=== PATIENT | male | born 1955 | race Caucasian/White ===

== ENCOUNTER 2024-11-21 12:35 | Inpatient (IN) | payer MEDICARE, OTHER ==
[~2024-11-21] VITALS: Ht 175.3 cm; Wt 88.0 kg
[2024-11-21] VITALS (9 sets, daily range): BP systolic 107–134; BP diastolic 55–93; TEMP 97.5; O2SAT 98–100
[2024-11-21] MEDS: VANCOMYCIN 1 GM in IV D5W 250 ML IV ONE (13:00)
[2024-11-21 13:14] LABS: BASOPHILS % (AUTO) 0.1 % (0.0-2.0); EOSINOPHILS # (AUTO) 0.2 K/uL (0.0-0.7); EOSINOPHILS % (AUTO) 1.2 % (0.0-6.0); HEMATOCRIT 29 % (39-51); HEMOGLOBIN 9.7 g/dL (13.5-17.5); LYMPHOCYTES # (AUTO) 0.3 K/uL (0.8-4.8); LYMPHOCYTES % (AUTO) 1.6 % (20.0-44.0); MEAN CORPUSCULAR HEMOGLOBIN 30 PG (26.0-33.0); MEAN CORPUSCULAR HGB CONC 34 g/dl (31.0-36.0); MEAN CORPUSCULAR VOLUME 90 fL (80-96); MONOCYTES # (AUTO) 0.2 K/uL (0.1-1.30); MONOCYTES % (AUTO) 1.4 % (2.0-12.0); NEUTROPHILS # (AUTO) 15.6 K/uL (1.8-8.9); NEUTROPHILS % (AUTO) 95.7 % (43.0-81.0); PLATELET COUNT (AUTO) 113 K/uL (150-450); RED BLOOD CELL COUNT(AUTO) 3.18 MIL/uL (4.5-6.0); RED CELL DISTRIBUTION WIDTH 15.9 % (11.5-15.0); WHITE BLOOD COUNT (AUTO) 16.3 K/uL (4.3-11.0)
[2024-11-21] MEDS ORDERED: MAGN400O6 PO (13:26)
[2024-11-21] MEDS ORDERED: ASCO-352 PO (13:26)
[2024-11-21] MEDS ORDERED: ASPI-1420 PO (13:26)
[2024-11-21] MEDS ORDERED: DOCU100T2 PO (13:26)
[2024-11-21] MEDS ORDERED: NICO2GUM38 PO (13:26)
[2024-11-21] MEDS ORDERED: ATOR40TA PO (13:26)
[2024-11-21] MEDS ORDERED: DICL100G34 TP (13:26)
[2024-11-21] MEDS ORDERED: ACET-2030 PO (13:26)
[2024-11-21] MEDS ORDERED: CHOL200026 PO (13:26)
[2024-11-21] MEDS ORDERED: AMIN887L7 PO (13:26)
[2024-11-21] MEDS ORDERED: BISA10SU11 RC (13:26)
[2024-11-21] MEDS ORDERED: LISI20TA30 PO (13:26)
[2024-11-21] MEDS ORDERED: MULT-225 PO (13:26)
[2024-11-21] MEDS ORDERED: GABA300C PO (13:26)
[2024-11-21 13:27] LABS: ALANINE AMINOTRANSFERASE 68 U/L (12-78); ALKALINE PHOSPHATASE 362 U/L (46-116); ASPARTATE AMINOTRANSFERASE 108 U/L (15-37); BILIRUBIN,DIRECT 1.6 mg/dL (0.0-0.2); BILIRUBIN,TOTAL 1.7 mg/dL (0.2-1.0); CALCIUM, SERUM 7.7 mg/dL (8.5-10.1); CARBON DIOXIDE 22 mmol/L (21-32); CHLORIDE 98 mmol/L (98-107); CREATININE 4.1 mg/dL (0.6-1.3); GLUCOSE 108 mg/dL (74-106); POTASSIUM 4.4 mmol/L (3.5-5.1); SODIUM SERUM 133 mmol/L (136-145); TOTAL PROTEIN, SERUM 6.6 g/dL (6.4-8.2)
[2024-11-21] MEDS: CEFEPIME 1 GM in IV D5W 50 ML IV ONE (13:27)
[2024-11-21] MEDS: IV NS 0.9% 1,000 ML BAG IV ONE ×2 (13:27→14:11)
[2024-11-21 13:29] LABS: INR 1.19 (0.91-1.10); PARTIAL THROMBOPLASTIN TIME 33.6 SEC (24.3-34.3); PROTHROMBIN TIME 12.5 SECS (9.2-11.1)
[2024-11-21 13:29] LABS: APPEARANCE,URINE CLEAR (CLEAR); BILIRUBIN,URINE NEGATIVE (NEGATIVE); BLOOD, URINE NEGATIVE Ery/uL (NEGATIVE); COLOR,URINE DARK YELLOW (YELLOW); KETONES,URINE NEGATIVE (NEGATIVE); LEUKOCYTE ESTERASE ,URINE NEGATIVE (NEGATIVE); NITRITE, URINE NEGATIVE (NEGATIVE); PH,URINE 5.5 (5.0-8.0); PROTEIN,URINE 2+ mg/dl (NEGATIVE); UGLUCOSE NEGATIVE (NEGATIVE); UROBILINOGEN,URINE 0.2 EU/dL (0.2)
[2024-11-21 13:34] LABS: ALBUMIN 1.3 g/dL (3.4-5.0); UREA NITROGEN, BLOOD 86 mg/dL (7-18)
[2024-11-21 13:35] LABS: LACTIC ACID 3.2 mmol/L (0.4-2.0)
[2024-11-21 13:41] LABS: ADD URINE CULTURE YES; BACTERIA,URINE Moderate /HPF (None Seen); MUCUS,URINE Few /LPF (None Seen); RBC,URINE 0-2 /HPF (0-2); SQUAMOUS EPITHELIAL CELL,UR 0-2 /HPF (None Seen); WBC,URINE 0-2 /HPF (0-3)
[2024-11-21] MEDS: NOREPINEPHRINE 8 MG in IV D5W 242 ML IV PRN ×2 (14:30→20:51)
[2024-11-21] MEDS ORDERED: NOREPINEPHRINE 8MG/250ML RTU 250 ML IV ONE ×2 (14:32→20:01)
[2024-11-21] MEDS ORDERED: ONDANSETRON HCL/PF 4 MG/2 ML VIAL IVP PRN (15:30)
[2024-11-21 15:43] LABS: ABG BASE EXCESS -8.4 mmol/L (-2.0-3.0); ABG OXYGEN SATURATION 85.2 % (94.0-98.0); ABG PCO2 26.1 mmHg (35.0-48.0); ABG PH 7.385 (7.350-7.450); ABG PO2 56.1 mmHg (83.0-108.0); ABG TOTAL HEMOGLOBIN 10.6 G/dL (13.5-17.5); COHb 0.2 % (0.5-1.5); MetHb 0.2 % (0.0-1.5); O2Hb 84.9 % (94.0-97.0); SITE, ABG RIGHT RADIAL
[2024-11-21] MEDS: VANCOMYCIN 500 MG in IV D5W 100ml IV ONE (19:30)
[2024-11-21] MEDS: Sodium Bicarbonate 100 MEQ in IV D5/0.45 NACL 1,000 ML IV SCH (20:46)
[2024-11-22] VITALS (97 sets, daily range): BP systolic 74–151; BP diastolic 50–92; TEMP 97.6–99; O2SAT 94–100
[2024-11-22] MEDS: IV NS 0.9% 250 ML IV PRN (00:32)
[2024-11-22] MEDS: CEFEPIME 1 GM in IV D5W 50 ML IV SCH (00:33)
[2024-11-22 05:00] LABS: BASOPHILS % (AUTO) 0.1 % (0.0-2.0); EOSINOPHILS # (AUTO) 0.4 K/uL (0.0-0.7); EOSINOPHILS % (AUTO) 1.7 % (0.0-6.0); HEMATOCRIT 28 % (39-51); HEMOGLOBIN 9.8 g/dL (13.5-17.5); LYMPHOCYTES # (AUTO) 0.3 K/uL (0.8-4.8); LYMPHOCYTES % (AUTO) 1.2 % (20.0-44.0); MEAN CORPUSCULAR HEMOGLOBIN 32 PG (26.0-33.0); MEAN CORPUSCULAR HGB CONC 35 g/dl (31.0-36.0); MEAN CORPUSCULAR VOLUME 91 fL (80-96); MONOCYTES # (AUTO) 0.6 K/uL (0.1-1.30); MONOCYTES % (AUTO) 2.8 % (2.0-12.0); NEUTROPHILS # (AUTO) 19.8 K/uL (1.8-8.9); NEUTROPHILS % (AUTO) 94.2 % (43.0-81.0); PLATELET COUNT (AUTO) 113 K/uL (150-450); RED BLOOD CELL COUNT(AUTO) 3.11 MIL/uL (4.5-6.0); RED CELL DISTRIBUTION WIDTH 15.9 % (11.5-15.0)
[2024-11-22 05:09] LABS: CALCIUM, SERUM 6.9 mg/dL (8.5-10.1); CREATININE 3.8 mg/dL (0.6-1.3); MAGNESIUM 2.5 mg/dL (1.8-2.4); PHOSPHORUS 6.4 mg/dL (2.5-4.9); POTASSIUM 4.6 mmol/L (3.5-5.1)
[2024-11-22 05:44] LABS: PLATELET ESTIMATE DECREASED
[2024-11-22 09:47] LABS: BILIRUBIN,DIRECT 1.4 mg/dL (0.0-0.2); BILIRUBIN,TOTAL 1.6 mg/dL (0.2-1.0); TOTAL PROTEIN, SERUM 6.3 g/dL (6.4-8.2)
[2024-11-22] MEDS: MULTIVIT W/MINERALS 1 TAB TABLET PO SCH (09:47)
[2024-11-22] MEDS: ASPIRIN EC 81 MG TABLET.DR PO SCH (09:47)
[2024-11-22] MEDS: CHOLECALCIFEROL 1,000 UNIT TABLET (VIT D3) PO SCH (09:47)
[2024-11-22] MEDS: ASCORBIC ACID 500 MG TABLET PO SCH (09:47)
[2024-11-22] MEDS: DOCUSATE SODIUM 100 MG CAPSULE PO SCH (09:48)
[2024-11-22] MEDS: GABAPENTIN 300 MG CAPSULE PO SCH (10:11)
[2024-11-22 10:12] LABS: ALBUMIN 1.1 g/dL (3.4-5.0)
[2024-11-22] MEDS: DICLOFENAC TOPICAL 100 GM TUBE TP SCH (10:40)
[2024-11-22] MEDS: ATORVASTATIN 40 MG TABLET PO SCH (21:17)
[2024-11-22] MEDS: MUPIROCIN OINT 2% 22 GM TUBE NS SCH (21:30)
[2024-11-23] VITALS (96 sets, daily range): BP systolic 73–143; BP diastolic 43–93; TEMP 97.5–98.7; O2SAT 92–100
[2024-11-23 05:38] LABS: ALANINE AMINOTRANSFERASE 65 U/L (12-78); ALKALINE PHOSPHATASE 401 U/L (46-116); ASPARTATE AMINOTRANSFERASE 99 U/L (15-37); BILIRUBIN,DIRECT 1.2 mg/dL (0.0-0.2); BILIRUBIN,TOTAL 1.5 mg/dL (0.2-1.0); CALCIUM, SERUM 7.2 mg/dL (8.5-10.1); CARBON DIOXIDE 25 mmol/L (21-32); CHLORIDE 103 mmol/L (98-107); CREATININE 3.4 mg/dL (0.6-1.3); GLUCOSE 151 mg/dL (74-106); MAGNESIUM 2.5 mg/dL (1.8-2.4); PHOSPHORUS 5.7 mg/dL (2.5-4.9); POTASSIUM 4.3 mmol/L (3.5-5.1); SODIUM SERUM 137 mmol/L (136-145); TOTAL PROTEIN, SERUM 6.3 g/dL (6.4-8.2)
[2024-11-23 05:43] LABS: CREATINE KINASE, TOTAL 165 U/L (39-308)
[2024-11-23 05:50] LABS: ALBUMIN 0.9 g/dL (3.4-5.0); UREA NITROGEN, BLOOD 89 mg/dL (7-18)
[2024-11-23 06:16] LABS: BASOPHILS % (AUTO) 0.1 % (0.0-2.0); EOSINOPHILS % (AUTO) 0.2 % (0.0-6.0); HEMATOCRIT 29 % (39-51); HEMOGLOBIN 9.6 g/dL (13.5-17.5); LYMPHOCYTES # (AUTO) 0.8 K/uL (0.8-4.8); LYMPHOCYTES % (AUTO) 4.4 % (20.0-44.0); MEAN CORPUSCULAR HEMOGLOBIN 31 PG (26.0-33.0); MEAN CORPUSCULAR HGB CONC 33 g/dl (31.0-36.0); MEAN CORPUSCULAR VOLUME 92 fL (80-96); MONOCYTES # (AUTO) 0.7 K/uL (0.1-1.30); MONOCYTES % (AUTO) 3.8 % (2.0-12.0); NEUTROPHILS # (AUTO) 16.2 K/uL (1.8-8.9); NEUTROPHILS % (AUTO) 91.5 % (43.0-81.0); PLATELET COUNT (AUTO) 115 K/uL (150-450); RED BLOOD CELL COUNT(AUTO) 3.16 MIL/uL (4.5-6.0); RED CELL DISTRIBUTION WIDTH 15.8 % (11.5-15.0); WHITE BLOOD COUNT (AUTO) 17.8 K/uL (4.3-11.0)
[2024-11-23] MEDS: PROSOURCE / PROSTAT (PYXIS) 30 ML UDC PO SCH (08:29)
[2024-11-23] MEDS: VANCOMYCIN 1 GM in IV D5W 250ml IV SCH (20:43)
[2024-11-24] VITALS (93 sets, daily range): BP systolic 60–146; BP diastolic 46–111; TEMP 97.3–97.8; O2SAT 94–98
[2024-11-24 04:44] LABS: EOSINOPHILS % (AUTO) 0.1 % (0.0-6.0); HEMATOCRIT 27 % (39-51); HEMOGLOBIN 9.2 g/dL (13.5-17.5); LYMPHOCYTES # (AUTO) 0.9 K/uL (0.8-4.8); LYMPHOCYTES % (AUTO) 5.6 % (20.0-44.0); MEAN CORPUSCULAR HEMOGLOBIN 30 PG (26.0-33.0); MEAN CORPUSCULAR HGB CONC 34 g/dl (31.0-36.0); MEAN CORPUSCULAR VOLUME 89 fL (80-96); MONOCYTES # (AUTO) 0.6 K/uL (0.1-1.30); MONOCYTES % (AUTO) 4.1 % (2.0-12.0); NEUTROPHILS # (AUTO) 13.7 K/uL (1.8-8.9); NEUTROPHILS % (AUTO) 90.2 % (43.0-81.0); PLATELET COUNT (AUTO) 82 K/uL (150-450); RED BLOOD CELL COUNT(AUTO) 3.05 MIL/uL (4.5-6.0); RED CELL DISTRIBUTION WIDTH 15.8 % (11.5-15.0); WHITE BLOOD COUNT (AUTO) 15.2 K/uL (4.3-11.0)
[2024-11-24 04:52] LABS: CALCIUM, SERUM 7.2 mg/dL (8.5-10.1); CREATININE 3.8 mg/dL (0.6-1.3); MAGNESIUM 2.3 mg/dL (1.8-2.4); PHOSPHORUS 5.3 mg/dL (2.5-4.9); POTASSIUM 4.1 mmol/L (3.5-5.1)
[2024-11-24 05:36] LABS: BAND % (MANUAL) 2 % (0.0-5.0); BASOPHILS % (MANUAL) 0 % (0.0-2.0); EOSINOPHILS % (MANUAL) 0 % (0-4); LYMPHOCYTES % (MANUAL) 6 % (16-48); MONOCYTES % (MANUAL) 5 % (0-11.0); NEUTROPHILS % (MANUAL) 87 (42-76); PLATELET ESTIMATE DECREASED
[2024-11-24] MEDS: ALBUMIN 25% 25 GM in PREMIX 1 EA IV SCH (08:25)
[2024-11-24] MEDS: ACETAMINOPHEN 325 MG TABLET PO PRN (18:21)
[2024-11-25] VITALS (55 sets, daily range): BP systolic 80–193; BP diastolic 59–145; TEMP 97–98; O2SAT 92–100
[2024-11-25 04:41] LABS: BASOPHILS % (AUTO) 0.2 % (0.0-2.0); EOSINOPHILS % (AUTO) 0.3 % (0.0-6.0); HEMATOCRIT 22 % (39-51); HEMOGLOBIN 7.5 g/dL (13.5-17.5); LYMPHOCYTES # (AUTO) 0.8 K/uL (0.8-4.8); LYMPHOCYTES % (AUTO) 6.8 % (20.0-44.0); MEAN CORPUSCULAR HEMOGLOBIN 31 PG (26.0-33.0); MEAN CORPUSCULAR HGB CONC 35 g/dl (31.0-36.0); MEAN CORPUSCULAR VOLUME 88 fL (80-96); MONOCYTES # (AUTO) 0.6 K/uL (0.1-1.30); MONOCYTES % (AUTO) 4.8 % (2.0-12.0); NEUTROPHILS # (AUTO) 10.1 K/uL (1.8-8.9); NEUTROPHILS % (AUTO) 87.9 % (43.0-81.0); PLATELET COUNT (AUTO) 59 K/uL (150-450); RED BLOOD CELL COUNT(AUTO) 2.44 MIL/uL (4.5-6.0); RED CELL DISTRIBUTION WIDTH 15.8 % (11.5-15.0); WHITE BLOOD COUNT (AUTO) 11.5 K/uL (4.3-11.0)
[2024-11-25 05:34] LABS: CALCIUM, SERUM 7.6 mg/dL (8.5-10.1); CREATININE 4.4 mg/dL (0.6-1.3); MAGNESIUM 2.4 mg/dL (1.8-2.4); PHOSPHORUS 5.7 mg/dL (2.5-4.9)
[2024-11-25 08:42] LABS: LYMPHOCYTES % (MANUAL) 12 % (16-48); MONOCYTES % (MANUAL) 2 % (0-11.0); NEUTROPHILS % (MANUAL) 86 (42-76)
[2024-11-25 08:43] LABS: PLATELET ESTIMATE DECREASED
[2024-11-25 08:44] LABS: ANISOCYTOSIS 1+
[2024-11-25] MEDS: ALBUMIN 25% 25 GM in PREMIX 1 EA IV SCH (09:50)
[2024-11-25 10:11] LABS: PTH, INTACT 646 pg/mL (15-65)
[2024-11-25 10:21] LABS: ABG BASE EXCESS 3.3 mmol/L (-2.0-3.0); ABG OXYGEN SATURATION 93.3 % (94.0-98.0); ABG PH 7.471 (7.350-7.450); ABG PO2 70.3 mmHg (83.0-108.0); ABG TOTAL HEMOGLOBIN 8.8 G/dL (13.5-17.5); COHb 0.1 % (0.5-1.5); O2Hb 93.2 % (94.0-97.0); SITE, ABG RIGHT RADIAL
[2024-11-25 13:02] LABS: HEMOGLOBIN 7.3 g/dL (13.5-17.5)
[2024-11-25] MEDS: IV D5/ 0.9% NACL 1,000 ML IV PRN (16:57)
[2024-11-26] VITALS (46 sets, daily range): BP systolic 63–155; BP diastolic 38–121; TEMP 97.7–99; O2SAT 88–96
[2024-11-26 05:24] LABS: BILIRUBIN,DIRECT 1.8 mg/dL (0.0-0.2); BILIRUBIN,TOTAL 2.7 mg/dL (0.2-1.0); CALCIUM, SERUM 8.5 mg/dL (8.5-10.1); CREATININE 5.2 mg/dL (0.6-1.3); POTASSIUM 4.2 mmol/L (3.5-5.1); TOTAL PROTEIN, SERUM 5.7 g/dL (6.4-8.2)
[2024-11-26 05:25] LABS: BASOPHILS % (AUTO) 0.1 % (0.0-2.0); EOSINOPHILS % (AUTO) 0.1 % (0.0-6.0); HEMATOCRIT 21 % (39-51); HEMOGLOBIN 7.5 g/dL (13.5-17.5); LYMPHOCYTES # (AUTO) 0.8 K/uL (0.8-4.8); LYMPHOCYTES % (AUTO) 6.5 % (20.0-44.0); MEAN CORPUSCULAR HEMOGLOBIN 31 PG (26.0-33.0); MEAN CORPUSCULAR HGB CONC 35 g/dl (31.0-36.0); MEAN CORPUSCULAR VOLUME 89 fL (80-96); MONOCYTES # (AUTO) 0.5 K/uL (0.1-1.30); MONOCYTES % (AUTO) 4.4 % (2.0-12.0); NEUTROPHILS # (AUTO) 10.5 K/uL (1.8-8.9); NEUTROPHILS % (AUTO) 88.9 % (43.0-81.0); PLATELET COUNT (AUTO) 55 K/uL (150-450); RED BLOOD CELL COUNT(AUTO) 2.42 MIL/uL (4.5-6.0); RED CELL DISTRIBUTION WIDTH 15.9 % (11.5-15.0); WHITE BLOOD COUNT (AUTO) 11.8 K/uL (4.3-11.0)
[2024-11-26 06:34] LABS: ANISOCYTOSIS 1+; BASOPHILS % (MANUAL) 0 % (0.0-2.0); EOSINOPHILS % (MANUAL) 0 % (0-4); LYMPHOCYTES % (MANUAL) 9 % (16-48); MONOCYTES % (MANUAL) 6 % (0-11.0); NEUTROPHILS % (MANUAL) 85 (42-76); PLATELET ESTIMATE DECREASED
[2024-11-26 12:29] LABS: APPEARANCE,URINE TURBID (CLEAR); BILIRUBIN,URINE 1+ (NEGATIVE); BLOOD, URINE 3+ Ery/uL (NEGATIVE); COLOR,URINE DARK YELLOW (YELLOW); KETONES,URINE TRACE mg/dL (NEGATIVE); LEUKOCYTE ESTERASE ,URINE TRACE (NEGATIVE); NITRITE, URINE POSITIVE (NEGATIVE); PH,URINE 5.5 (5.0-8.0); PROTEIN,URINE 3+ mg/dl (NEGATIVE); UGLUCOSE TRACE mg/dL (NEGATIVE)
[2024-11-26 12:31] LABS: CREATININE, URINE 133.8 MG/DL (30.0-125.0); URINE TOTAL PROTEIN 483.4 mg/dL (0-11.9)
[2024-11-26 12:45] LABS: ADD URINE CULTURE YES; BACTERIA,URINE Few /HPF (None Seen)
[2024-11-26 12:47] LABS: MUCUS,URINE Few /LPF (None Seen); SQUAMOUS EPITHELIAL CELL,UR 0-2 /HPF (None Seen)
[2024-11-26 13:50] LABS: EOSINOPHIL,URINE None Seen
[2024-11-27] VITALS (19 sets, daily range): BP systolic 102–142; BP diastolic 68–123; TEMP 97.7–98.4; O2SAT 90–97
[2024-11-27 04:37] LABS: BASOPHILS % (AUTO) 0.2 % (0.0-2.0); EOSINOPHILS % (AUTO) 0.1 % (0.0-6.0); HEMATOCRIT 22 % (39-51); HEMOGLOBIN 7.4 g/dL (13.5-17.5); LYMPHOCYTES # (AUTO) 0.7 K/uL (0.8-4.8); LYMPHOCYTES % (AUTO) 5.6 % (20.0-44.0); MEAN CORPUSCULAR HEMOGLOBIN 31 PG (26.0-33.0); MEAN CORPUSCULAR HGB CONC 35 g/dl (31.0-36.0); MEAN CORPUSCULAR VOLUME 89 fL (80-96); MONOCYTES # (AUTO) 0.6 K/uL (0.1-1.30); MONOCYTES % (AUTO) 4.8 % (2.0-12.0); NEUTROPHILS # (AUTO) 10.6 K/uL (1.8-8.9); NEUTROPHILS % (AUTO) 89.3 % (43.0-81.0); PLATELET COUNT (AUTO) 51 K/uL (150-450); RED BLOOD CELL COUNT(AUTO) 2.42 MIL/uL (4.5-6.0); RED CELL DISTRIBUTION WIDTH 15.9 % (11.5-15.0); WHITE BLOOD COUNT (AUTO) 11.8 K/uL (4.3-11.0)
[2024-11-27 04:58] LABS: BILIRUBIN,DIRECT 1.7 mg/dL (0.0-0.2); BILIRUBIN,TOTAL 2.6 mg/dL (0.2-1.0); CALCIUM, SERUM 8.5 mg/dL (8.5-10.1); CREATININE 4.4 mg/dL (0.6-1.3); POTASSIUM 4.2 mmol/L (3.5-5.1); TOTAL PROTEIN, SERUM 5.7 g/dL (6.4-8.2)
[2024-11-27] MEDS ORDERED: VANCOMYCIN 500 MG in IV D5W 100 ML IV PRN (06:00)
[2024-11-27 06:33] LABS: ANISOCYTOSIS 1+; BAND % (MANUAL) 3 % (0.0-5.0); BASOPHILS % (MANUAL) 0 % (0.0-2.0); EOSINOPHILS % (MANUAL) 0 % (0-4); LYMPHOCYTES % (MANUAL) 7 % (16-48); MONOCYTES % (MANUAL) 5 % (0-11.0); NEUTROPHILS % (MANUAL) 85 (42-76); PLATELET ESTIMATE DECREASED
[2024-11-27] MEDS ORDERED: FLUDROCORTISONE 0.1 MG TABLET PO SCH (09:00)
[2024-11-27] MEDS ORDERED: EPOETIN ALFA (4000 UNIT) 4,000 UNIT/ML VIAL SQ SCH (11:00)
[2024-11-27 13:46] LABS: INR 1.54 (0.91-1.10); PARTIAL THROMBOPLASTIN TIME 54.9 SEC (24.3-34.3); PROTHROMBIN TIME 15.9 SECS (9.2-11.1)
[2024-11-27] MEDS: EPOETIN ALFA (4000 UNIT) 4,000 UNIT/ML VIAL SQ SCH (15:23)
[2024-11-28] VITALS: BP 120/65; TEMP 97.7; O2SAT 96
[2024-11-28 04:00] VITALS: BP 124/80; TEMP 98; O2SAT 98
[2024-11-28 08:00] VITALS: BP 108/67; TEMP 98.8; O2SAT 98
[2024-11-28 08:08] LABS: CALCIUM, SERUM 8.8 mg/dL (8.5-10.1); CREATININE 5.2 mg/dL (0.6-1.3); POTASSIUM 4.3 mmol/L (3.5-5.1)
[2024-11-28 08:58] LABS: BASOPHILS % (AUTO) 0.2 % (0.0-2.0); EOSINOPHILS % (AUTO) 0.4 % (0.0-6.0); HEMATOCRIT 25 % (39-51); HEMOGLOBIN 8.5 g/dL (13.5-17.5); LYMPHOCYTES # (AUTO) 0.9 K/uL (0.8-4.8); LYMPHOCYTES % (AUTO) 8.2 % (20.0-44.0); MEAN CORPUSCULAR HEMOGLOBIN 31 PG (26.0-33.0); MEAN CORPUSCULAR HGB CONC 34 g/dl (31.0-36.0); MEAN CORPUSCULAR VOLUME 91 fL (80-96); MONOCYTES # (AUTO) 0.7 K/uL (0.1-1.30); MONOCYTES % (AUTO) 6.5 % (2.0-12.0); NEUTROPHILS # (AUTO) 9.1 K/uL (1.8-8.9); NEUTROPHILS % (AUTO) 84.7 % (43.0-81.0); RED BLOOD CELL COUNT(AUTO) 2.73 MIL/uL (4.5-6.0); RED CELL DISTRIBUTION WIDTH 16.3 % (11.5-15.0); WHITE BLOOD COUNT (AUTO) 10.8 K/uL (4.3-11.0)
[2024-11-28 09:13] LABS: PLATELET COUNT (AUTO) 50 K/uL (150-450)
[2024-11-28 11:43] LABS: ANISOCYTOSIS 1+; EOSINOPHILS % (MANUAL) 1 % (0-4); LYMPHOCYTES % (MANUAL) 9 % (16-48); MONOCYTES % (MANUAL) 1 % (0-11.0); NEUTROPHILS % (MANUAL) 89 (42-76); PLATELET ESTIMATE DECREASED
[2024-11-28 12:00] VITALS: BP 141/84; TEMP 98.8; O2SAT 97
[2024-11-28 15:23] LABS: BASOPHILS % (AUTO) 0.1 % (0.0-2.0); EOSINOPHILS % (AUTO) 0.2 % (0.0-6.0); HEMATOCRIT 23 % (39-51); HEMOGLOBIN 7.8 g/dL (13.5-17.5); LYMPHOCYTES % (AUTO) 8.8 % (20.0-44.0); MEAN CORPUSCULAR HEMOGLOBIN 31 PG (26.0-33.0); MEAN CORPUSCULAR HGB CONC 34 g/dl (31.0-36.0); MEAN CORPUSCULAR VOLUME 90 fL (80-96); MONOCYTES # (AUTO) 0.8 K/uL (0.1-1.30); MONOCYTES % (AUTO) 6.6 % (2.0-12.0); NEUTROPHILS # (AUTO) 9.9 K/uL (1.8-8.9); NEUTROPHILS % (AUTO) 84.3 % (43.0-81.0); RED BLOOD CELL COUNT(AUTO) 2.56 MIL/uL (4.5-6.0); RED CELL DISTRIBUTION WIDTH 16.3 % (11.5-15.0); WHITE BLOOD COUNT (AUTO) 11.8 K/uL (4.3-11.0)
[2024-11-28 15:28] LABS: PLATELET COUNT (AUTO) 47 K/uL (150-450)
[2024-11-28 16:00] VITALS: BP 122/83; TEMP 98.8; O2SAT 100
[2024-11-28 16:46] LABS: LYMPHOCYTES % (MANUAL) 6 % (16-48); MONOCYTES % (MANUAL) 5 % (0-11.0); NEUTROPHILS % (MANUAL) 89 (42-76)
[2024-11-28 16:47] LABS: ANISOCYTOSIS 1+; PLATELET ESTIMATE DECREASED
[2024-11-28 20:00] VITALS: BP 97/71; TEMP 97.7; O2SAT 97
[2024-11-29] VITALS (10 sets, daily range): BP systolic 90–124; BP diastolic 55–70; TEMP 97.3–98.2; O2SAT 98–99
[2024-11-29 06:10] LABS: HEPATITIS B CORE AB, IgM Negative (Negative); HEPATITIS B CORE AB, TOTAL Negative (Negative); HEPATITIS B SURFACE AB (QUAL) Non Reactive (.)
[2024-11-29 07:50] LABS: CALCIUM, SERUM 8.2 mg/dL (8.5-10.1); CREATININE 3.8 mg/dL (0.6-1.3); POTASSIUM 3.8 mmol/L (3.5-5.1)
[2024-11-29 07:55] LABS: BASOPHILS % (AUTO) 0.1 % (0.0-2.0); LYMPHOCYTES # (AUTO) 0.8 K/uL (0.8-4.8); LYMPHOCYTES % (AUTO) 7.3 % (20.0-44.0); MEAN CORPUSCULAR HEMOGLOBIN 30 PG (26.0-33.0); MEAN CORPUSCULAR HGB CONC 34 g/dl (31.0-36.0); MEAN CORPUSCULAR VOLUME 89 fL (80-96); MONOCYTES # (AUTO) 0.6 K/uL (0.1-1.30); MONOCYTES % (AUTO) 5.4 % (2.0-12.0); NEUTROPHILS # (AUTO) 10.1 K/uL (1.8-8.9); NEUTROPHILS % (AUTO) 87.2 % (43.0-81.0); RED BLOOD CELL COUNT(AUTO) 2.22 MIL/uL (4.5-6.0); RED CELL DISTRIBUTION WIDTH 15.9 % (11.5-15.0); WHITE BLOOD COUNT (AUTO) 11.5 K/uL (4.3-11.0)
[2024-11-29 09:14] LABS: HEMATOCRIT 20 % (39-51); HEMOGLOBIN 6.7 g/dL (13.5-17.5); PLATELET COUNT (AUTO) 38 K/uL (150-450)
[2024-11-29 10:19] LABS: ANISOCYTOSIS 1+; LYMPHOCYTES % (MANUAL) 6 % (16-48); MONOCYTES % (MANUAL) 2 % (0-11.0); NEUTROPHILS % (MANUAL) 92 (42-76); PLATELET ESTIMATE DECREASED
[2024-11-29] MEDS: ALBUMIN 25% 25 GM in PREMIX 1 EA IV PRN (15:28)
[2024-11-30] VITALS (10 sets, daily range): BP systolic 93–122; BP diastolic 58–77; TEMP 97.5–99.5; O2SAT 96–100
[2024-11-30 07:48] LABS: CALCIUM, SERUM 8.7 mg/dL (8.5-10.1); POTASSIUM 4.4 mmol/L (3.5-5.1)
[2024-11-30 07:49] LABS: BASOPHILS % (AUTO) 0.1 % (0.0-2.0); EOSINOPHILS % (AUTO) 0.3 % (0.0-6.0); HEMATOCRIT 25 % (39-51); HEMOGLOBIN 8.7 g/dL (13.5-17.5); LYMPHOCYTES # (AUTO) 0.9 K/uL (0.8-4.8); MEAN CORPUSCULAR HEMOGLOBIN 30 PG (26.0-33.0); MEAN CORPUSCULAR HGB CONC 34 g/dl (31.0-36.0); MEAN CORPUSCULAR VOLUME 88 fL (80-96); MONOCYTES # (AUTO) 0.7 K/uL (0.1-1.30); MONOCYTES % (AUTO) 5.9 % (2.0-12.0); NEUTROPHILS # (AUTO) 10.8 K/uL (1.8-8.9); NEUTROPHILS % (AUTO) 86.7 % (43.0-81.0); RED BLOOD CELL COUNT(AUTO) 2.88 MIL/uL (4.5-6.0); RED CELL DISTRIBUTION WIDTH 16.4 % (11.5-15.0); WHITE BLOOD COUNT (AUTO) 12.4 K/uL (4.3-11.0)
[2024-11-30 07:59] LABS: PLATELET COUNT (AUTO) 36 K/uL (150-450)
[2024-11-30 09:36] LABS: LYMPHOCYTES % (MANUAL) 8 % (16-48); NEUTROPHILS % (MANUAL) 88 (42-76); PLATELET ESTIMATE DECREASED
[2024-11-30 09:37] LABS: ANISOCYTOSIS 1+; MONOCYTES % (MANUAL) 4 % (0-11.0)
[2024-11-30 10:07] LABS: ABG BASE EXCESS 0.6 mmol/L (-2.0-3.0); ABG PCO2 33.8 mmHg (35.0-48.0); ABG TOTAL HEMOGLOBIN 8.9 G/dL (13.5-17.5); COHb 0.5 % (0.5-1.5); MetHb 0.3 % (0.0-1.5); O2Hb 94.2 % (94.0-97.0); SITE, ABG LEFT RADIAL
[2024-11-30] MEDS: MIDODRINE HCL (5MG) 5 MG TABLET PO SCH (13:00)
[2024-11-30 15:30] LABS: BASOPHILS # (AUTO) 0.1 K/uL (0.0-0.2); BASOPHILS % (AUTO) 0.3 % (0.0-2.0); HEMATOCRIT 26 % (39-51); HEMOGLOBIN 8.4 g/dL (13.5-17.5); LYMPHOCYTES # (AUTO) 0.7 K/uL (0.8-4.8); LYMPHOCYTES % (AUTO) 3.9 % (20.0-44.0); MEAN CORPUSCULAR HEMOGLOBIN 29 PG (26.0-33.0); MEAN CORPUSCULAR HGB CONC 33 g/dl (31.0-36.0); MEAN CORPUSCULAR VOLUME 88 fL (80-96); MONOCYTES # (AUTO) 0.8 K/uL (0.1-1.30); MONOCYTES % (AUTO) 4.8 % (2.0-12.0); RED BLOOD CELL COUNT(AUTO) 2.91 MIL/uL (4.5-6.0); RED CELL DISTRIBUTION WIDTH 15.9 % (11.5-15.0); WHITE BLOOD COUNT (AUTO) 17.6 K/uL (4.3-11.0)
[2024-11-30 15:38] LABS: PLATELET COUNT (AUTO) 37 K/uL (150-450)
[2024-11-30 21:11] LABS: BAND % (MANUAL) 2 % (0.0-5.0); EOSINOPHILS % (MANUAL) 1 % (0-4); LYMPHOCYTES % (MANUAL) 3 % (16-48); MONOCYTES % (MANUAL) 3 % (0-11.0); NEUTROPHILS % (MANUAL) 91 (42-76)
[2024-11-30 21:12] LABS: ANISOCYTOSIS 1+; OVALOCYTES RARE; PLATELET ESTIMATE DECREASED
[2024-11-30] MEDS: CEFTRIAXONE 1GM BAG (ER ONLY) 50 ML IV ONE (22:18)
[2024-11-30] MEDS: CEFTRIAXONE 1 G in IV D5W 50 ML IV SCH (22:19)
[2024-12-01] VITALS (27 sets, daily range): BP systolic 83–124; BP diastolic 48–100; TEMP 97.7–99; O2SAT 96–100
[2024-12-01 07:43] LABS: ALBUMIN 1.6 g/dL (3.4-5.0); BILIRUBIN,DIRECT 1.6 mg/dL (0.0-0.2); BILIRUBIN,TOTAL 2.3 mg/dL (0.2-1.0); CALCIUM, SERUM 8.8 mg/dL (8.5-10.1); CREATININE 5.2 mg/dL (0.6-1.3); TOTAL PROTEIN, SERUM 6.7 g/dL (6.4-8.2)
[2024-12-01] MEDS: FLUDROCORTISONE 0.1 MG TABLET PO SCH (08:43)
[2024-12-01] MEDS: MIDODRINE HCL (5MG) 5 MG TABLET PO SCH (08:44)
[2024-12-01 08:46] LABS: BASOPHILS # (AUTO) 0.1 K/uL (0.0-0.2); BASOPHILS % (AUTO) 0.7 % (0.0-2.0); HEMATOCRIT 27 % (39-51); HEMOGLOBIN 8.9 g/dL (13.5-17.5); LYMPHOCYTES # (AUTO) 0.9 K/uL (0.8-4.8); LYMPHOCYTES % (AUTO) 6.3 % (20.0-44.0); MEAN CORPUSCULAR HEMOGLOBIN 29 PG (26.0-33.0); MEAN CORPUSCULAR HGB CONC 33 g/dl (31.0-36.0); MEAN CORPUSCULAR VOLUME 89 fL (80-96); MONOCYTES # (AUTO) 0.9 K/uL (0.1-1.30); MONOCYTES % (AUTO) 6.3 % (2.0-12.0); NEUTROPHILS % (AUTO) 86.7 % (43.0-81.0); RED BLOOD CELL COUNT(AUTO) 3.08 MIL/uL (4.5-6.0); RED CELL DISTRIBUTION WIDTH 16.3 % (11.5-15.0)
[2024-12-01 09:04] LABS: PLATELET COUNT (AUTO) 38 K/uL (150-450)
[2024-12-01 09:49] LABS: ABG BASE EXCESS -3.2 mmol/L (-2.0-3.0); ABG OXYGEN SATURATION 85.7 % (94.0-98.0); ABG PCO2 44.5 mmHg (35.0-48.0); ABG PH 7.326 (7.350-7.450); ABG PO2 58.4 mmHg (83.0-108.0); ABG TOTAL HEMOGLOBIN 9.6 G/dL (13.5-17.5); COHb 0.3 % (0.5-1.5); MetHb 0.3 % (0.0-1.5); O2Hb 85.2 % (94.0-97.0); SITE, ABG LEFT RADIAL
[2024-12-01 11:57] LABS: LYMPHOCYTES % (MANUAL) 4 % (16-48); MONOCYTES % (MANUAL) 2 % (0-11.0); NEUTROPHILS % (MANUAL) 94 (42-76); PLATELET ESTIMATE DECREASED
[2024-12-01] MEDS: MEROPENEM 500 MG in IV NS 0.9% 50 ML IV SCH (21:05)
[2024-12-02] VITALS (18 sets, daily range): BP systolic 0–101; BP diastolic 0–77; TEMP 97–98; O2SAT 0–100
[2024-12-02] MEDS: NOREPINEPHRINE 8 MG in IV D5W 242 ML IV PRN (00:46)
[2024-12-02 04:31] LABS: CALCIUM, SERUM 8.7 mg/dL (8.5-10.1); CREATININE 6.2 mg/dL (0.6-1.3)
[2024-12-02 04:33] LABS: BASOPHILS % (AUTO) 0.1 % (0.0-2.0); HEMATOCRIT 26 % (39-51); HEMOGLOBIN 8.5 g/dL (13.5-17.5); LYMPHOCYTES # (AUTO) 0.4 K/uL (0.8-4.8); LYMPHOCYTES % (AUTO) 3.1 % (20.0-44.0); MEAN CORPUSCULAR HEMOGLOBIN 30 PG (26.0-33.0); MEAN CORPUSCULAR HGB CONC 32 g/dl (31.0-36.0); MEAN CORPUSCULAR VOLUME 92 fL (80-96); MONOCYTES # (AUTO) 0.7 K/uL (0.1-1.30); MONOCYTES % (AUTO) 5.6 % (2.0-12.0); NEUTROPHILS # (AUTO) 11.8 K/uL (1.8-8.9); NEUTROPHILS % (AUTO) 91.2 % (43.0-81.0); PLATELET COUNT (AUTO) 82 K/uL (150-450); RED BLOOD CELL COUNT(AUTO) 2.87 MIL/uL (4.5-6.0); RED CELL DISTRIBUTION WIDTH 17.3 % (11.5-15.0); WHITE BLOOD COUNT (AUTO) 12.9 K/uL (4.3-11.0)
[2024-12-02] MEDS: PHENYLEPHRINE 50 MG in IV NS 0.9% 245 ML IV PRN (04:47)
[2024-12-02] MEDS: PHENYLEPHRINE 10 MG/ML VIAL ONE (04:47)
[2024-12-02 05:08] LABS: POTASSIUM 6.8 mmol/L (3.5-5.1)
[2024-12-02 05:31] LABS: PHOSPHORUS 12.3 mg/dL (2.5-4.9)
[2024-12-02 05:32] LABS: MAGNESIUM 2.6 mg/dL (1.8-2.4)
[2024-12-02 06:04] LABS: LYMPHOCYTES % (MANUAL) 2 % (16-48); MONOCYTES % (MANUAL) 4 % (0-11.0); NEUTROPHILS % (MANUAL) 94 (42-76); PLATELET ESTIMATE DECREASED
[2024-12-02 06:07] LABS: ANISOCYTOSIS 1+
== END 2024-12-02 04:18 | DRG 871 ==
LOC: ER 12:40 → ICU 19:48 → TELE1 11-27 17:18 → ICU 12-01 12:30
PROVIDERS: ADMIT Nurse Practitioner Acute Care
PROC: 06HY33Z Insertion of Infusion Device into Lower Vein, Percutaneous Approach (ICD-10-PCS; principal; 2024-11-26)
PROC: 5A1D70Z Performance of Urinary Filtration, Intermittent, Less than 6 Hours Per Day (ICD-10-PCS; 2024-11-26)
PROC: 30233N1 Transfusion of Nonautologous Red Blood Cells into Peripheral Vein, Percutaneous Approach (ICD-10-PCS; 2024-11-29)
PROC: 30233R1 Transfusion of Nonautologous Platelets into Peripheral Vein, Percutaneous Approach (ICD-10-PCS; 2024-12-01)
DX: A40.0 Sepsis due to streptococcus, group A (principal); E43 Unspecified severe protein-calorie malnutrition; J15.69 Pneumonia due to other Gram-negative bacteria; N17.0 Acute kidney failure with tubular necrosis; R65.21 Severe sepsis with septic shock; J96.01 Acute respiratory failure with hypoxia; G92.8 Other toxic encephalopathy; L02.416 Cutaneous abscess of left lower limb; L03.116 Cellulitis of left lower limb; J44.0 Chronic obstructive pulmonary disease with (acute) lower respiratory infection; E87.20 Acidosis, unspecified; E11.52 Type 2 diabetes mellitus with diabetic peripheral angiopathy with gangrene; T81.31XA Disruption of external operation (surgical) wound, not elsewhere classified, initial encounter; D64.9 Anemia, unspecified; Z66 Do not resuscitate; Z98.890 Other specified postprocedural states; R13.10 Dysphagia, unspecified; M89.8X9 Other specified disorders of bone, unspecified site; I12.9 Hypertensive chronic kidney disease with stage 1 through stage 4 chronic kidney disease, or unspecified chronic kidney disease; N18.9 Chronic kidney disease, unspecified; D63.1 Anemia in chronic kidney disease; Z86.718 Personal history of other venous thrombosis and embolism; I70.0 Atherosclerosis of aorta; Z79.82 Long term (current) use of aspirin; Z79.899 Other long term (current) drug therapy; E88.09 Other disorders of plasma-protein metabolism, not elsewhere classified; D69.59 Other secondary thrombocytopenia; K70.9 Alcoholic liver disease, unspecified; K70.30 Alcoholic cirrhosis of liver without ascites; K72.10 Chronic hepatic failure without coma; Y95 Nosocomial condition; R57.1 Hypovolemic shock; F10.10 Alcohol abuse, uncomplicated; L89.626 Pressure-induced deep tissue damage of left heel; E87.70 Fluid overload, unspecified; E78.5 Hyperlipidemia, unspecified; E11.22 Type 2 diabetes mellitus with diabetic chronic kidney disease; B95.0 Streptococcus, group A, as the cause of diseases classified elsewhere; N49.2 Inflammatory disorders of scrotum; N50.89 Other specified disorders of the male genital organs; R04.0 Epistaxis; Y83.8 Other surgical procedures as the cause of abnormal reaction of the patient, or of later complication, without mention of misadventure at the time of the procedure; Y92.9 Unspecified place or not applicable
CPT/HCPCS: 31720; 36415; 36600; 38221; 70450-TC; 71045-TC; 76705-TC; 76770-TC; 76870-TC; 76882; 80048-TC; 80053-TC; 80076-TC; 80202-TC; 81001; 82040-TC; 82140-TC; 82533; 82550-TC; 82570-TC; 82803-TC; 83605-TC; 83735-TC; 83970; 84100-TC; 84155; 84165; 84300-TC; 84484-TC; 85025-TC; 85027-TC; 85610-TC; 85730-TC; 86704; 86705; 86706; 86803; 86850-TC; 87040-TC; 87081-TC; 87086-TC; 87186-TC; 87340; 90935-TC; 92526; 92611-TC; 94799-TC; A4216; A4217; A4223; A6253; A6403; A6407; G0378; J0692; J0696; J0885; J2185; J3370; J3490; J7030; J7042; J7050; J7060; P9016; P9034; P9047